=== PATIENT | female | born 1985 | race Asian ===

== ENCOUNTER 2024-09-12 08:56 | Outpatient (CLI) | payer BC | END 2024-09-12 08:57 | disposition home or self-care (01) | LOC: CSHMAMMO 08:56 | PROVIDERS: ATTEND Family Medicine | DX: N63.13 Unspecified lump in the right breast, lower outer quadrant (principal); Z80.3 Family history of malignant neoplasm of breast | CPT/HCPCS: 77066; G0279 ==

== ENCOUNTER 2025-06-22 09:12 | Outpatient (CLI) | payer BC | END 2025-06-22 09:13 | disposition home or self-care (01) | LOC: CSHULT 09:12 | PROVIDERS: ATTEND Family Medicine | DX: N92.6 Irregular menstruation, unspecified (principal); N83.01 Follicular cyst of right ovary; N83.02 Follicular cyst of left ovary | CPT/HCPCS: 76856; 93976 ==